=== PATIENT | female | born 1960 | race African-American/Black ===

== ENCOUNTER 2022-04-17 11:03 | Emergency (ER) | payer MEDICAID ==
[~2022-04-17] VITALS: Ht 165.1 cm; Wt 104.3 kg
[2022-04-17 11:16] VITALS: BP 171/72
[2022-04-17] MEDS ORDERED: FLUORESCEIN OPTH STRIP 1 MG OP ONE (11:30)
[2022-04-17] MEDS ORDERED: TETRACAINE HCL/PF 0.5% OPTH 4 ML BTL OP ONE (11:30)
[2022-04-17] MEDS ORDERED: GAROS RIGHT EYE (11:39)
--- NOTE | 2022-04-17 11:44 | NUR ---
61/F C/O RIGHT EYE PAIN AND TEARING X2 WEEKS. PATIENT STATES EYE DISCOMFORT; DENIES PAIN. REPORTS REDNESS, TEARS, AND "LIGHT YELLOW/THICK" DRAINAGE. DENIES RECENT INJURY OR TRAUMA, DENIES RECALLING ANYTHING POSSIBLY GETTING INTO HER EYE. DENIES VISION CHANGES. DENIES OTC MEDS. BED LOCKED IN LOWEST POSITION, SIDE RAILS X 1. PMH: DENIES NKDA
--- NOTE | 2022-04-17 11:45 | NUR ---
Patient discharged with v/s stable. Written and verbal after care instructions given and explained for Bacterial Conjunctivitis. Patient alert, oriented and verbalized understanding of instructions. Ambulatory with steady gait. All questions addressed prior to discharge. ID band removed. Patient advised to follow up with PMD. Rx of Gentamicin 0.3% Op Solution given. Patient educated on indication of medication including possible reaction and side effects. Opportunity to ask questions provided and answered.
== END 2022-04-17 11:45 | disposition home or self-care (01) ==
LOC: MED 11:03
DX: H10.9 Unspecified conjunctivitis (principal); I10 Essential (primary) hypertension; Z79.2 Long term (current) use of antibiotics
CPT/HCPCS: 99283

== ENCOUNTER 2023-11-16 09:53 | Emergency (ER) | payer MEDICAID ==
[~2023-11-16] VITALS: Ht 165.1 cm; Wt 97.3 kg
[~2023-11-16 09:53] MED LIST: GAROS RIGHT EYE
[2023-11-16 10:05] VITALS: BP 165/87; PULSE 58; RESP 16; TEMP 96.9; O2SAT 99
[2023-11-16] MEDS ORDERED: ACYC-278 PO (10:34)
[2023-11-16] MEDS ORDERED: PRED20TA5 PO (10:34)
[2023-11-16] MEDS ORDERED: IBUP-2213 PO (10:34)
[2023-11-16 10:38] VITALS: BP 165/87; PULSE 58; RESP 16; TEMP 96.9; O2SAT 99
== END 2023-11-16 10:38 | disposition home or self-care (01) ==
LOC: MED 09:53
DX: B02.9 Zoster without complications (principal); R03.0 Elevated blood-pressure reading, without diagnosis of hypertension; Z79.2 Long term (current) use of antibiotics
CPT/HCPCS: 99283